=== PATIENT | female | born 2000 | race Two or more races ===

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

== ENCOUNTER 2020-06-15 17:31 | Inpatient (IN) | payer MEDICAID ==
[~2020-06-15] VITALS: Ht 162.6 cm; Wt 76.7 kg
[2020-06-15] MEDS ORDERED: 0.9 % SODIUM CHLORIDE 10 ML DISP.SYRIN. IV PRN (18:00)
[2020-06-15] MEDS ORDERED: fentaNYL PF VIAL 100 MCG/2 ML VIAL IVP PRN (18:00)
[2020-06-15] MEDS ORDERED: OXYTOCIN 30 UNIT/500 ML PREMIX 500 ML IV PRN (18:00)
[2020-06-15] MEDS ORDERED: BUTORPHANOL 2 MG/ML VIAL. IVP PRN ×2 (18:00)
[2020-06-15] MEDS ORDERED: ONDANSETRON PF 4 MG/2 ML VIAL. IVP PRN (18:00)
[2020-06-15] MEDS ORDERED: LIDOCAINE 1% PF 30 ML VIAL. INJ PRN (18:00)
[2020-06-15 18:17] LABS: BILIRUBIN,URINE NEGATIVE (NEG); CLARITY,URINE CLEAR; COLOR,URINE YELLOW; NITRITE,URINE NEGATIVE (NEG); PROTEIN,URINE NEGATIVE (NEG-TRACE); UROBILINOGEN,URINE 0.2 mg/dL (0.2 mg/dL)
[2020-06-15 18:26] LABS: BACTERIA,URINE FEW /HPF (0-FEW); RBC,URINE 0 /HPF (0-2); SQUAMOUS EPITHELIAL CELL,UR FEW /LPF; WBC,URINE OCC /HPF (0-4)
[2020-06-15] MEDS ORDERED: AMPICILLIN SODIUM 2 GM in IV NORMAL SALINE 100ML 100 ML IV ONE (18:30)
[2020-06-15] MEDS ORDERED: DINOPROSTONE 10 MG SUPP.VAG VG ONE (18:30)
--- NOTE | 2020-06-15 19:00 | NUR ---
Term G1 admitted for induction.
[2020-06-15 19:24] VITALS: BP 118/61
[2020-06-15] MEDS: IV RINGERS,LACTATED 1000ML 1,000 ML IV PRN (19:59)
[2020-06-15 20:18] LABS: BASO % 0 % (0-3); EOS # 0.1 x10^3/uL (0.0-0.7); EOS % 1 % (0-3); LYMPH # 2.4 x10^3/uL (1.0-4.8); LYMPH % 25 % (24-48); MEAN CORPUSCULAR HEMOGLOBIN 29 pg (25-35); MEAN CORPUSCULAR HGB CONC 33 g/dL (31-37); MEAN CORPUSCULAR VOLUME 88 fL (79-100); MONO # 0.7 x10^3/uL (0.0-1.1); MONO % 7 % (0-9); NEUT # 6.4 x10^3/uL (1.8-7.7); NEUT % 67 % (31-73); PLATELET COUNT 179 x10^3/uL (140-400); RED BLOOD COUNT 4.46 x10^6/uL (3.50-5.40); RED CELL DISTRIBUTION WIDTH 13.1 % (11.5-14.5); WHITE BLOOD COUNT 9.6 x10^3/uL (4.0-11.0)
[2020-06-15 21:20] LABS: PLT ESTIMATE ADEQUATE (ADEQUATE)
[2020-06-15] MEDS: AMPICILLIN SODIUM 1 GM in IV NORMAL SALINE 50ML 50 ML IV SCH (22:30)
[2020-06-16] MEDS: AMPICILLIN SODIUM 1 GM in IV NORMAL SALINE 50ML 50 ML IV SCH ×5 (02:30→18:30)
[2020-06-16] MEDS: IV RINGERS,LACTATED 1000ML 1,000 ML IV PRN ×2 (06:09→10:18)
[2020-06-16] MEDS ORDERED: OXYTOCIN 30 UNIT/500 ML PREMIX 500 ML IV PRN ×2 (07:00→12:30)
--- NOTE | 2020-06-16 07:30 | PDOC1 ---
OB - History Hx of Present Care: Good Care Ultrasounds: Normal mid trimester US Obstetrical Complications: None Medical Complications: None Past Family/Social History * Past Medical, Surgical, Family and Obstetric Histories reviewed from chart. Rubella: Immune RPR/VDRL: Negative GBS Status: Negative HBsAG: Negative OB - Chief Complaint & HPI Date of Admission: Date of Admission: Jun 15, 2020 at 17:31 Chief Complaint/History : 1 Para: 0 EGA: 40 Reason for admission: induction of labor Indication for induction: post dates Admission Nurse Assessment Rev: Yes OB - Admission Exam Physical Exam Vitals: VS - Last 72 Hours, by Label Date Time Temp Pulse Resp B/P (MAP) Pulse Ox O2 Delivery O2 Flow Rate FiO2 06/16/20 06:47 18 Room Air 06/15/20 19:24 98.9 70 20 118/61 (80) 98.9 HEENT: Normal Heart: Regular Rate Lungs: Clear Abdomen: Gravid, Non tender, Soft Extremities: Edema Reflexes: Normal Cervical Dilatation: None Effacement: 25% Station: -3 Membranes: Intact Accelerations: Accelerations Present Decelerations: No decelerations Contractions on Admission: None Text A: 40 wks IUP IOL secondary post term P: Admit IOL cervidil, then pitocin in am. CRISTIANO GUTIERREZ Jr, MD Jun 16, 2020 07:30
[2020-06-16] MEDS ORDERED: L&D EPIDURAL SYRINGE 50 ML ONE (09:12)
[2020-06-16] MEDS ORDERED: L&D EPIDURAL 50 ML SYRINGE. ONE (10:00)
--- NOTE | 2020-06-16 12:22 | PDOC ---
VAGINAL DELIVERY DATE DATE: 06/16/20 TIME: 12:20 : 1 Para: 1 EGA: 40 VAGINAL DELIVERY: VTX VACCUM ASSISTED: Yes NUMBER OF PULLS one NUMBER OF POP OFFS none MAXIMUM PRESSURE 600 mmhg PLACENTA: Spontaneous 8/9 SEX: Male WEIGHT Weight [ 5 lbs. 11 oz] Nuchal Cord: No Amniotic Fluid: Clear PAIN: Epidural EPISIOTOMY: No EXTENSION: Yes (2nd degree midline laceration) REPAIRED WITH 2-0 vicryl EBL 300 ml COMPLICATIONS none CONDITION pt. stable Signs of Intrauterine Infectio: None Shoulder Dystocia: No CRISTIANO GUTIERREZ Jr, MD Jun 16, 2020 12:22
[2020-06-16] MEDS ORDERED: BENZOCAINE 20% TOPICAL AEROSOL SPRAY 57GM CAN. TP PRN (12:30)
[2020-06-16] MEDS ORDERED: TDaP (Adacel) per PROTOCOL. MC PRN (12:30)
[2020-06-16] MEDS ORDERED: MAG HYDROX/ALUMINUM HYD/SIMETH 30 ML ORAL.SUSP PO PRN (12:30)
[2020-06-16] MEDS ORDERED: MAGNESIUM HYDROXIDE 2,400 MG/30 ML ORAL.SUSP. PO PRN (12:30)
[2020-06-16] MEDS ORDERED: HYDROCORTISONE 1% TOPICAL OINTMENT 30GM TUBE. TP PRN (12:30)
[2020-06-16] MEDS ORDERED: 0.9 % SODIUM CHLORIDE 10 ML DISP.SYRIN. IV PRN (12:30)
[2020-06-16] MEDS ORDERED: diphenhydrAMINE HCL 25 MG CAPSULE PO PRN (12:30)
[2020-06-16] MEDS ORDERED: IBUPROFEN 400 MG TABLET. PO PRN (12:30)
[2020-06-16] MEDS ORDERED: MMR per PROTOCOL. MC PRN (12:30)
[2020-06-16] MEDS ORDERED: SIMETHICONE 80 MG TAB.CHEW PO PRN (12:30)
[2020-06-16] MEDS ORDERED: oxyCODONE/APAP 5/325 1 TAB TABLET PO PRN (12:30)
[2020-06-16] MEDS ORDERED: PHENYLEPH/MINERAL OIL/PETROLAT RECTAL OINTMENT TUBE. RC PRN (12:30)
[2020-06-16] MEDS ORDERED: ZOLPIDEM 5 MG TABLET. PO PRN (12:30)
[2020-06-16] MEDS ORDERED: ACETAMINOPHEN 325 MG TABLET. PO PRN (12:30)
[2020-06-16] MEDS: IBUPROFEN 400 MG TABLET. PO PRN ×2 (13:03→20:36)
[2020-06-16 15:00] VITALS: BP 99/54
[2020-06-16 16:21] VITALS: BP 105/48
[2020-06-16] MEDS: DOCUSATE SODIUM 100 MG CAPSULE. PO PRN (20:35)
[2020-06-16 20:40] VITALS: BP 107/56
[2020-06-17 02:00] VITALS: BP 107/78
[2020-06-17 05:40] VITALS: BP 113/56
[2020-06-17 07:30] LABS: BASO % 0 % (0-3); EOS # 0.1 x10^3/uL (0.0-0.7); EOS % 1 % (0-3); HEMATOCRIT 34.5 % (36.0-47.0); HEMOGLOBIN 11.7 g/dL (12.0-15.5); LYMPH # 2.4 x10^3/uL (1.0-4.8); LYMPH % 19 % (24-48); MEAN CORPUSCULAR HEMOGLOBIN 30 pg (25-35); MEAN CORPUSCULAR HGB CONC 34 g/dL (31-37); MEAN CORPUSCULAR VOLUME 88 fL (79-100); MONO # 0.9 x10^3/uL (0.0-1.1); MONO % 8 % (0-9); NEUT # 9.1 x10^3/uL (1.8-7.7); NEUT % 73 % (31-73); PLATELET COUNT 148 x10^3/uL (140-400); RED BLOOD COUNT 3.92 x10^6/uL (3.50-5.40); RED CELL DISTRIBUTION WIDTH 13.5 % (11.5-14.5); WHITE BLOOD COUNT 12.6 x10^3/uL (4.0-11.0)
[2020-06-17] MEDS: FERROUS SULFATE 325 MG TABLET. PO SCH (08:00)
[2020-06-17] MEDS: DOCUSATE SODIUM 100 MG CAPSULE. PO PRN ×2 (08:43→16:50)
[2020-06-17] MEDS: IBUPROFEN 400 MG TABLET. PO PRN ×2 (08:44→16:51)
[2020-06-17] MEDS ORDERED: MULTIVITAMIN with MINERAL TABLET. PO SCH (09:00)
[2020-06-17 11:30] VITALS: BP 96/53
--- NOTE | 2020-06-17 12:28 | PDOC ---
OB Progress Note Date of Service 06/17/20 Time of Evaluation 1220 Notes Pt. feeling well. No complaints. Lab Laboratory Tests Test 06/15/20 18:00 06/15/20 18:25 06/15/20 19:59 06/17/20 07:05 Urine Collection Type Unknown Urine Color Yellow Urine Clarity Clear Urine pH 7.0 (<5.0-8.0) Urine Specific [place] 1.010 (1.000-1.030) Urine Protein Negative mg/dL (NEG-TRACE) Urine Glucose (UA) Negative mg/dL (NEG) Urine Ketones (Stick) Negative mg/dL (NEG) Urine Blood Negative (NEG) Urine Nitrite Negative (NEG) Urine Bilirubin Negative (NEG) Urine Urobilinogen Dipstick 0.2 mg/dL (0.2 mg/dL) Urine Leukocyte Esterase Negative (NEG) Urine RBC 0 /HPF (0-2) Urine WBC Occ /HPF (0-4) Urine Squamous Epithelial Cells Few /LPF Urine Bacteria Few /HPF (0-FEW) Coronavirus (PCR) Not detected (Not Detected) SARS-CoV-2 Antigen (Rapid) Negative (NEGATIVE) White Blood Count 9.6 x10^3/uL (4.0-11.0) 12.6 x10^3/uL (4.0-11.0) Red Blood Count 4.46 x10^6/uL (3.50-5.40) 3.92 x10^6/uL (3.50-5.40) Hemoglobin 13.0 g/dL (12.0-15.5) 11.7 g/dL (12.0-15.5) Hematocrit 39.0 % (36.0-47.0) 34.5 % (36.0-47.0) Mean Corpuscular Volume 88 fL (79-100) 88 fL (79-100) Mean Corpuscular Hemoglobin 29 pg (25-35) 30 pg (25-35) Mean Corpuscular Hemoglobin Concent 33 g/dL (31-37) 34 g/dL (31-37) Red Cell Distribution Width 13.1 % (11.5-14.5) 13.5 % (11.5-14.5) Platelet Count 179 x10^3/uL (140-400) 148 x10^3/uL (140-400) Neutrophils (%) (Auto) 67 % (31-73) 73 % (31-73) Lymphocytes (%) (Auto) 25 % (24-48) 19 % (24-48) Monocytes (%) (Auto) 7 % (0-9) 8 % (0-9) Eosinophils (%) (Auto) 1 % (0-3) 1 % (0-3) Basophils (%) (Auto) 0 % (0-3) 0 % (0-3) Neutrophils # (Auto) 6.4 x10^3/uL (1.8-7.7) 9.1 x10^3/uL (1.8-7.7) Lymphocytes # (Auto) 2.4 x10^3/uL (1.0-4.8) 2.4 x10^3/uL (1.0-4.8) Monocytes # (Auto) 0.7 x10^3/uL (0.0-1.1) 0.9 x10^3/uL (0.0-1.1) Eosinophils # (Auto) 0.1 x10^3/uL (0.0-0.7) 0.1 x10^3/uL (0.0-0.7) Basophils # (Auto) 0.0 x10^3/uL (0.0-0.2) 0.0 x10^3/uL (0.0-0.2) Platelet Estimate Adequate (ADEQUATE) Giant Platelets Occ Treponema pallidum Antibody Nonreactive (Nonreactive) Laboratory Tests Test 06/17/20 07:05 White Blood Count 12.6 x10^3/uL (4.0-11.0) Red Blood Count 3.92 x10^6/uL (3.50-5.40) Hemoglobin 11.7 g/dL (12.0-15.5) Hematocrit 34.5 % (36.0-47.0) Mean Corpuscular Volume 88 fL (79-100) Mean Corpuscular Hemoglobin 30 pg (25-35) Mean Corpuscular Hemoglobin Concent 34 g/dL (31-37) Red Cell Distribution Width 13.5 % (11.5-14.5) Platelet Count 148 x10^3/uL (140-400) Neutrophils (%) (Auto) 73 % (31-73) Lymphocytes (%) (Auto) 19 % (24-48) Monocytes (%) (Auto) 8 % (0-9) Eosinophils (%) (Auto) 1 % (0-3) Basophils (%) (Auto) 0 % (0-3) Neutrophils # (Auto) 9.1 x10^3/uL (1.8-7.7) Lymphocytes # (Auto) 2.4 x10^3/uL (1.0-4.8) Monocytes # (Auto) 0.9 x10^3/uL (0.0-1.1) Eosinophils # (Auto) 0.1 x10^3/uL (0.0-0.7) Basophils # (Auto) 0.0 x10^3/uL (0.0-0.2) Medications Current Medications Sodium Chloride (Normal Saline Flush) 3 ml QSHIFT PRN IV AFTER MEDS AND BLOOD DRAWS; Start 06/15/20 at 18:00 Ringer's Solution 1,000 ml @ 125 mls/hr Q8H PRN IV PER PROTOCOL Last administered on 06/16/20at 10:18; Start 06/15/20 at 18:30; Stop 06/16/20 at 22:13; Status DC Butorphanol Tartrate (Stadol) 1 mg PRN Q1HR PRN IVP mild to moderate labor pain; Start 06/15/20 at 18:00 Butorphanol Tartrate (Stadol) 2 mg PRN Q1HR PRN IVP Severe labor pain; Start 06/15/20 at 18:00 Fentanyl Citrate (Fentanyl 2ml Vial) 100 mcg PRN Q1HR PRN IVP Labor pain Last administered on 06/16/20at 06:47; Start 06/15/20 at 18:00 Ondansetron HCl (Zofran) 4 mg PRN Q4HRS PRN IVP NAUSEA/VOMITING; Start 06/15/20 at 18:00 Lidocaine HCl (Xylocaine 1% Pf 30ml Vial) 30 ml 1X PRN PRN INJ SEE COMMENTS; Start 06/15/20 at 18:00; Stop 06/17/20 at 17:59 Ampicillin Sodium 2 gm/Sodium Chloride 100 ml @ 200 mls/hr 1X ONCE IV Last administered on 06/16/20at 06:48; Start 06/15/20 at 18:30; Stop 06/15/20 at 18:59; Status DC Ampicillin Sodium 1 gm/Sodium Chloride 50 ml @ 100 mls/hr Q4H IV ; Start 06/15/20 at 22:30; Stop 06/16/20 at 22:13; Status DC Oxytocin/Sodium Chloride 500 ml @ 0 mls/hr CONT PRN IV SEE I/O RECORD Last administered on 06/16/20at 06:12; Start 06/16/20 at 07:00 Oxytocin/Sodium Chloride 500 ml @ 0 mls/hr CONT PRN PRN IV Post delivery bleeding; Start 06/15/20 at 18:00 Ibuprofen (Motrin) 800 mg PRN Q6HRS PRN PO PAIN Last administered on 06/17/20at 08:44; Start 06/15/20 at 18:00 Dinoprostone (Cervidil) 10 mg 1X ONCE VG Last administered on 06/15/20at 19:59; Start 06/15/20 at 18:30; Stop 06/15/20 at 18:31; Status DC Fentanyl Citrate 50 ml @ As Directed STK-MED ONCE .ROUTE ; Start 06/16/20 at 09:12; Stop 06/16/20 at 09:13; Status DC Sodium Chloride (Normal Saline Flush) 10 ml QSHIFT PRN IV AFTER MEDS AND BLOOD DRAWS; Start 06/16/20 at 12:30 Oxytocin/Sodium Chloride 500 ml @ 62.5 mls/hr CONT PRN IV SEE I/O RECORD; Start 06/16/20 at 12:30; Stop 06/16/20 at 20:29; Status DC Acetaminophen (Tylenol) 650 mg PRN Q6HRS PRN PO MILD PAIN / TEMP > 100.3'F; Start 06/16/20 at 12:30 Ibuprofen (Motrin) 800 mg PRN Q8HRS PRN PO INFLAMMATION/PAIN PREVENTION; Start 06/16/20 at 12:30 Docusate Sodium (Colace) 100 mg PRN BID PRN PO HARD STOOL Last administered on 06/17/20at 08:43; Start 06/16/20 at 12:30 Magnesium Hydroxide (Milk Of Magnesia) 2,400 mg PRN DAILY PRN PO CONSTIPATION; Start 06/16/20 at 12:30 Al Hydroxide/Mg Hydroxide (Mylanta Plus Xs) 30 ml PRN Q4HRS PRN PO HEARTBURN / GAS; Start 06/16/20 at 12:30 Simethicone (Gas-X) 80 mg PRN AFTMEALHC PRN PO GAS / BLOATING; Start 06/16/20 at 12:30 Diphenhydramine HCl (Benadryl) 25 mg PRN Q6HRS PRN PO ITCHING; Start 06/16/20 at 12:30 Benzocaine (Americaine) 1 spray PRN QID PRN TP TOPICAL PAIN Last administered on 06/16/20at 13:04; Start 06/16/20 at 12:30 Phenyleph/Shark Oil/Min Oil/Petrol (Preparation H) 1 matthew PRN QID PRN RC RECTAL PAIN; Start 06/16/20 at 12:30 Hydrocortisone (Cortaid) 1 matthew PRN QID PRN TP PERINEAL PAIN; Start 06/16/20 at 12:30 Ferrous Sulfate (Feosol) 325 mg BIDWMEALS PO ; Start 06/17/20 at 08:00 Zolpidem Tartrate (Ambien) 5 mg PRN QHS PRN PO INSOMNIA, MAY REPEAT X1; Start 06/16/20 at 12:30 Info (Do NOT chart on this placeholder) 1 ea 1X PRN PRN MC SEE COMMENTS; Start 06/16/20 at 12:30 Info (Do NOT chart on this placeholder) 1 ea 1X PRN PRN MC SEE COMMENTS; Start 06/16/20 at 12:30 Oxycodone/ Acetaminophen (Percocet 5/325) 2 tab PRN Q4HRS PRN PO MODERATE PAIN, SEVERE PAIN; Start 06/16/20 at 12:30 Multivitamins (Thera M Plus) 1 tab DAILY PO Last administered on 06/17/20at 08:43; Start 06/17/20 at 09:00 Fentanyl Citrate (Wajflzdt-Erpvq-KP 3 Mcg-0.1%) 50 ml STK-MED ONCE .ROUTE ; Start 06/16/20 at 10:00; Stop 06/17/20 at 08:18; Status DC Exam Abd: soft, non tender, fundus firm Assessment PPD#1 s/p VAVD Plan of Care: Continue current Tx, Mgmt CRISTIANO GUTIERREZ Jr, MD Jun 17, 2020 12:28
[2020-06-17 16:59] VITALS: BP 114/66
[2020-06-17 22:16] VITALS: BP 119/62
[2020-06-18 05:00] VITALS: BP 114/64
[2020-06-18 07:00] VITALS: BP 118/63
[2020-06-18] MEDS: DOCUSATE SODIUM 100 MG CAPSULE. PO PRN (08:55)
[2020-06-18] MEDS: FERROUS SULFATE 325 MG TABLET. PO SCH (08:55)
--- NOTE | 2020-06-18 12:38 | PDOC3 ---
OB DISCHARGE SUMMARY DATE OF ADMISSION: 06/16/20 DATE OF DISCHARGE: 06/18/20 REASON FOR ADMISSION: Onset of labor INTRAPARTUM PROCEDURES: Spontanous Vag Deliv DISCHARGE DIAGNOSIS: Term Delivered DISCHARGE INFORMATION: Activity (ad tre), Diet (regular), Instructions (pelvic rest x 6 wks) HOSPITAL COURSE Term gestation delivered vaginally without complications. CRISTIANO GUTIERREZ Jr, MD Jun 18, 2020 12:38
[2020-06-18] MEDS ORDERED: IBUP-1027 PO (12:39)
--- NOTE | 2020-06-18 12:39 | DISCH ---
DISCHARGE INSTRUCTIONS Condition on Discharge Condition on Discharge: Stable Activity After Discharge Activity Instructions for Disc: Activity as tolerated Lifting Instructions after Dis: No heavy lifting Driving Instructions after Dis: Do not drive today Diet after Discharge Diet after Discharge: Regular Contacting the [facility] after DC Call your doctor for: Concerns you may have Follow-Up Follow up with: Trevor in 6 wks CRISTIANO GUTIERREZ Jr, MD Jun 18, 2020 12:39
[2020-06-18 13:59] VITALS: BP 107/65
== END 2020-06-18 15:32 | disposition home or self-care (01) | DRG 807 ==
LOC: 3 SO LND 17:31 → OBSVTOIN 17:31 → 3 NORTH 06-16 15:00
PROVIDERS: ADMIT Obstetrics & Gynecology; ATTEND Obstetrics & Gynecology
PROC: 10D07Z6 Extraction of Products of Conception, Vacuum, Via Natural or Artificial Opening (ICD-10-PCS; principal; 2020-06-16)
PROC: 0KQM0ZZ Repair Perineum Muscle, Open Approach (ICD-10-PCS; 2020-06-16)
PROC: 3E0R3BZ Introduction of Anesthetic Agent into Spinal Canal, Percutaneous Approach (ICD-10-PCS; 2020-06-16)
PROC: 00HU33Z Insertion of Infusion Device into Spinal Canal, Percutaneous Approach (ICD-10-PCS; 2020-06-16)
DX: O70.1 Second degree perineal laceration during delivery (principal); Z37.0 Single live birth; Z3A.40 40 weeks gestation of pregnancy; Z20.828 Contact with and (suspected) exposure to other viral communicable diseases
CPT/HCPCS: 36415; 81001; 85025; 86592; 86850; 86900; 86901; 87426; J0290; J2590; J3010; J7120; G0378; U0003-CS